=== PATIENT | female | born 1990 | race Caucasian/White ===

== ENCOUNTER 2025-02-02 07:02 | Day surgery (SDC) | payer OTHER ==
[~2025-02-02] VITALS: Ht 162.6 cm; Wt 78.6 kg
[~2025-02-02 07:02] MED LIST: IBUP80TA PO; dexAMETHasone 4 MG/ML 1 ML VIAL IV ONE
[2025-02-02] MEDS ORDERED: SUGAMMADEX SODIUM 500 MG/5 ML VIAL As Ordered ONE (07:03)
[2025-02-02] MEDS ORDERED: ROCURONIUM BROMIDE 50MG/5ML VIAL As Ordered ONE (07:03)
[2025-02-02] MEDS ORDERED: ONDANSETRON 4MG/2ML VIAL As Ordered ONE (07:03)
[2025-02-02] MEDS ORDERED: dexAMETHasone 4 MG/ML 1 ML VIAL As Ordered ONE (07:03)
[2025-02-02] MEDS ORDERED: LIDOCAINE 2% 100 MG/5 ML SDV (FOR ANES.) As Ordered ONE (07:03)
[2025-02-02] MEDS ORDERED: MIDAZOLAM INJ 2 MG/2 ML VIAL As Ordered ONE (07:42)
[2025-02-02] MEDS: LR 1,000 ML IV SCH ×2 (07:43→09:05)
[2025-02-02] MEDS: AMPICILLIN SOD/SULBACTAM SOD 3 GM in D5W MINI-BAG 100 ML IV ONE (08:32)
[2025-02-02] MEDS: CHLORHEXIDINE GLUCONATE 0.12% 15 ML UDC As Ordered ONE (08:37)
[2025-02-02] MEDS ORDERED: ACETAMINOPHEN 1000MG/100ML IV BAG As Ordered ONE (08:38)
[2025-02-02] MEDS: OXYMETAZOLINE 0.05% NASAL SPRAY As Ordered ONE (08:39)
[2025-02-02] MEDS ORDERED: MEPERIDINE 25 MG/ML 1 ML VIAL IV PRN (09:05)
[2025-02-02] MEDS ORDERED: ONDANSETRON 4MG/2ML VIAL IV PRN (09:05)
[2025-02-02] MEDS ORDERED: HYDROMORPHONE HCL 0.5 MG/0.5 ML SYRINGE IV PRN (09:05)
[2025-02-02 09:51] VITALS: BP 106/55; TEMP 97; O2SAT 96
== END 2025-02-02 10:14 | disposition home or self-care (01) ==
LOC: M SDC 07:02
PROVIDERS: ATTEND Dentist
DX: K02.9 Dental caries, unspecified (principal); F17.210 Nicotine dependence, cigarettes, uncomplicated; G43.909 Migraine, unspecified, not intractable, without status migrainosus; F41.9 Anxiety disorder, unspecified; F32.A Depression, unspecified
CPT/HCPCS: 88300; D7210; D9223; J0131; J0295; J0666; J1100; J2250; J2405; J3010